=== PATIENT | male | born 1950 | race Caucasian/White ===

== ENCOUNTER 2018-11-02 18:26 | Inpatient (IN) | payer OTHER ==
[~2018-11-02] VITALS: Ht 185.4 cm; Wt 83.0 kg
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
--- NOTE | 2018-11-02 20:38 | RADIOLOGY IMAGING REPORT ---
FACILITY: [facility] [place] PATIENT NAME: Duncan Min : 1950 MR: [id number] V: [id number] EXAM DATE: ORDERING PHYSICIAN: TOREY HYMAN TECHNOLOGIST: Location: [facility] Patient: Duncan Min : 1950 Visit/Account:[id number] Date of Sevice: 11/02/2018 CT HIP LEFT W/O HISTORY: hip fracture CT scan of the left hip. Axial imaging through the left hip. Reconstructed sagittal and coronal scans were obtained as well. One of the following dose optimization techniques was utilized in the performance of this exam: Autom ated exposure control; adjustment of the mA and/or kV according to the patient's size; or use of an i terative reconstruction technique. Specific details can be referenced in the facility's radiology C T exam operational policy. FINDINGS: The study demonstrates an impacted transcervical femoral neck fracture. No significant cortical offse t or angulation noted. Acetabulum is intact with no acetabular fracture. Superior and inferior pubic rami well-maintained. Periarticular soft tissues unremarkable IMPRESSION: 1. Impacted transcervical left femoral neck fracture. Report Dictated By: Yfn Leo MD at 11/02/2018 8:26 PM Report E-Signed By: Yfn Leo MD at 11/02/2018 8:31 PM WSN:[id number]
[2018-11-02 21:57] LABS: PLATELET COUNT, AUTOMATED 265 K/uL (150-450)
--- NOTE | 2018-11-02 21:58 | EKG ---
FACILITY: [facility] PATIENT NAME: ADE WOOTEN : [id number] MR: [id number] V: [id number] EXAM DATE: ORDERING PHYSICIAN: TOREY HYMAN TECHNOLOGIST: JESSIE Cassidy Reason : PRE-OP Blood Pressure : / mmHG Vent. Rate : 070 BPM Atrial Rate : 070 BPM P-R Int : 154 ms QRS Dur : 104 ms QT Int : 388 ms P-R-T Axes : 052 -29 029 degrees QTc Int : 419 ms Normal sinus rhythm Normal ECG No previous ECGs available Confirmed by LINH ROSADO ([id number]) on 11/03/2018 12:25:27 AM Referred By: Confirmed By:LINH ROSADO
[2018-11-02 22:09] LABS: INR 0.99
--- NOTE | 2018-11-02 22:32 | RADIOLOGY IMAGING REPORT ---
FACILITY: [facility] PATIENT NAME: Duncan Min : 1950 MR: [id number] V: [id number] EXAM DATE: ORDERING PHYSICIAN: TOREY HYMAN TECHNOLOGIST: Location: [facility] [place] Patient: Duncan Min : 1950 Visit/Account:[id number] Date of Sevice: 11/02/2018 CHEST SINGLE AP Indication: Pre-op evaluation.. Comparison: None available Findings: Cardiomediastinal silhouette and pulmonary vessels within normal limits. There is no focal infiltrate or lobar consolidation. No pneumothorax or pleural effusion. No nodule. Upper abdomen is unremarkable. No acute bony abnormality. IMPRESSION: 1. No acute cardiopulmonary process. Report Dictated By: Jaden Ulloa at 11/02/2018 10:24 PM Report E-Signed By: Jaden Ulloa at 11/02/2018 10:25 PM WSN:[id number]
[2018-11-02 22:37] VITALS: BP 147/74
[2018-11-02] MEDS ORDERED: NS(*) 0.9% 1000 ML BAG 1,000 ML IV PRN (23:05)
[2018-11-02] MEDS ORDERED: ONDANSETRON 4 MG/2 ML VIAL IVP PRN (23:05)
[2018-11-02] MEDS ORDERED: MORPHINE 4 MG/ML SDV IVP PRN (23:05)
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
[2018-11-02] MEDS ORDERED: ACETAMINOPHEN(*)1000 MG/100 ML 100 ML IVPB PRN (23:35)
[2018-11-02] MEDS ORDERED: GLUC100026 PO (23:44)
[2018-11-03] VITALS (17 sets, daily range): BP systolic 130–152; BP diastolic 66–78; Ht 185.4 cm; Wt 83.0 kg
[2018-11-03] MEDS ORDERED: NORMOSOL R SOLN(*) 1000 ML BAG 1,000 ML IV PRN (06:10)
[2018-11-03] MEDS ORDERED: FAMOTIDINE(*) 20MG/50ML PREMIX 50 ML IVPB ONE (08:00)
[2018-11-03] MEDS ORDERED: DEXAMETHASONE SOD PHOS 10MG/ML ONE (08:30)
[2018-11-03] MEDS ORDERED: fentaNYL CITR 100 MCG/2 ML AMP ONE (08:30)
[2018-11-03] MEDS ORDERED: ONDANSETRON 4 MG/2 ML VIAL ONE (08:30)
[2018-11-03] MEDS ORDERED: PROPOFOL EMUL(*) 10MG/ML 20 ML 20 ML ONE (08:30)
[2018-11-03] MEDS ORDERED: LIDOCAINE 2% IV 100 MG/5ML SYR ONE (08:31)
[2018-11-03] MEDS ORDERED: KETAMINE HCL-NS 50 MG/5 ML SYR ONE (08:32)
[2018-11-03] MEDS ORDERED: EPINEPHrine HCL 1 MG/ML AMP ONE (08:33)
[2018-11-03] MEDS ORDERED: ROPIVACAINE 0.2% 20 ML VIAL ONE ×2 (08:33→12:04)
[2018-11-03] MEDS ORDERED: ROPIVACAINE 0.5% 20 ML VIAL ONE (08:33)
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
--- NOTE | 2018-11-03 10:00 | NUR ---
1000 PT TRANSFERRED VIA INPT BED TO OPS/PACU FOR PREOP. SBAR RECEIVED FROM [facility] RN. UPON ARRIVAL TO OPS/PACU PT CHANGED INTO HOSPITAL GOWN, ALL PERSONAL ITEMS PLACED IN BAG AND PLACED ON INPT BED. 1045 PT REQUESTED URINAL, VOIDED W/O DIFFICULTY. 1105 TO BEDSIDE. PT DENIES NEEDS AT THIS TIME.
[2018-11-03] MEDS ORDERED: MIDAZOLAM 2 MG/2 ML VIAL ONE (11:36)
[2018-11-03] MEDS ORDERED: ceFAZolin(*) 2GM/D5W 50ML 50 ML IVPB ONE (11:48)
[2018-11-03] MEDS ORDERED: NS(*) 0.9% 1000 ML BAG 1,000 ML IV PRN (13:55)
[2018-11-03] MEDS ORDERED: MORPHINE 2 MG/ML SYR IVP PRN (13:55)
[2018-11-03] MEDS ORDERED: ONDANSETRON 4 MG/2 ML VIAL IVP PRN (13:55)
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
--- NOTE | 2018-11-03 14:24 | RADIOLOGY IMAGING REPORT ---
FACILITY: [facility] PATIENT NAME: Duncan Min : 1950 MR: [id number] V: [id number] EXAM DATE: ORDERING PHYSICIAN: DANILO SERNA TECHNOLOGIST: Location: [facility] Patient: Duncan Min : 1950 Visit/Account:[id number] Date of Sevice: 11/03/2018 Intraoperative fluoroscopy. BODY PART: Hip. NUMBER OF IMAGES: 2. HISTORY: Hip pinning. Images were obtained during intraoperative fluoroscopy. FLUOROSCOPY TIME: 1 minute 29 seconds. IMPRESSION: Intraoperative fluoroscopy. Report Dictated By: Jason Trejo MD at 11/03/2018 2:14 PM Report E-Signed By: Jason Trejo MD at 11/03/2018 2:16 PM WSN:[id number]
--- NOTE | 2018-11-03 14:53 | Miscellaneous Provider Note ---
Miscellaneous Provider Note Note Hip Pinning by Dr. Reveles. No surgical issues or complications reported. He will be on Aspirin for VTE prophylaxis. Pt has no complaints at this time. Pain management by Ortho. PT to eval. JANIYA SHETH Nov 03, 2018 14:53
--- NOTE | 2018-11-03 16:20 | NUR ---
Physical Therapy Impression PT eval done and goals met with initial visit. No further visits planned. Pt tolerated gait trng with FWW to access hallway and completed up/down platform step x 1 rep with FWW and SBA. Pt then educated on ambulation with single crutch as well as with B) crutches. Following this, pt completed up/down step with single crutch and rail with good technique and only minimial verbal cues required. Finally, pt completed a third step with Up/down using B) crutches. This technique required increased cues and CGA to ensure safety. Pt encouraged to complete stairs with only single crutch and hand-held assist or rail in the home environment. Pt also encouraged to utilize FWW with nursing through the night and then attempt crutch ambulation once more alert tomorrow with nursing, prior to possible discharge home. Pt completed therapy visit with bed mobility trng, using leg scientific helper device to assist as needed for L) LE in/out of bed and to reposition for comfort while in bed. Pt has met all PT goals and from a mobility stand point is ready for discharge when medically appropriate. Physical Therapy Goals Goals met with initial visit; no further visits planned 1. Pt to be CGA/SBA for bed mobility and supine to/from sit transfers 2. Pt to be CGA/SBA for ambulation x 100' with least restrictive device 3. Pt to complete up/down step x 3 with variety of methods to determine which feels safest to pt. PT recommends use of single crutch and rail or single crutch and hand-held assist. 4. Pt to be CGA/SBA for sit to/from stand transfers with FWW and crutches. Patient's Goals
[2018-11-03] MEDS: APAP/HYDROCODONE 325/5 TAB PO PRN ×2 (19:22→23:33)
[2018-11-03] MEDS ORDERED: ASPIRIN 325 MG ENTERIC COATED PO SCH (21:00)
[2018-11-04 04:30] VITALS: BP 129/71
[2018-11-04] MEDS: APAP/HYDROCODONE 325/5 TAB PO PRN ×2 (05:40→11:38)
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
[2018-11-04] MEDS ORDERED: ASPIRIN 81 MG ENTERIC COATED PO SCH (09:00)
[2018-11-04 09:15] VITALS: BP 111/67
[2018-11-04] MEDS ORDERED: ASPI-757 PO (10:07)
[2018-11-04] MEDS ORDERED: LOR5/325 PO (12:09)
[2018-11-04] MEDS ORDERED: DOCU240C84 PO (12:10)
[2018-11-04 12:38] VITALS: BP 122/75
--- NOTE | 2018-11-06 09:38 | RADIOLOGY IMAGING REPORT ---
FACILITY: [facility] [place] PATIENT NAME: Dnucan Min : 1950 MR: [id number] V: [id number] EXAM DATE: ORDERING PHYSICIAN: TOREY HYMAN TECHNOLOGIST: Location: [facility] Patient: Duncan Min : 1950 Visit/Account:[id number] Date of Sevice: 11/02/2018 HIP LEFT Indication: Left hip pain. Comparison: Pelvis and left hip radiographs dated 11/02/2018. Findings: AP view of the pelvis. Frog-leg view of the left hip. Acute nondisplaced left femoral neck fracture. No significant change. No dislocation or radiopaque foreign body. Mild bilateral hip osteoarthritis. Mild degenerative changes in the included portion of the lumbar s pine. Impression: Nondisplaced left femoral neck fracture. No significant change. Report Dictated By: Rafal Gaona MD at 11/06/2018 9:28 AM Report E-Signed By: Rafal Gaona MD at 11/06/2018 9:30 AM [id number]
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
== END 2018-11-04 13:02 | disposition home or self-care (01) | DRG 482 ==
LOC: ER 19:19 → MED 21:46
PROVIDERS: ADMIT Orthopaedic Surgery; ATTEND Orthopaedic Surgery
PROC: 0QS734Z Reposition Left Upper Femur with Internal Fixation Device, Percutaneous Approach (ICD-10-PCS; principal; 2018-11-03 12:14)
DX: S72.032A Displaced midcervical fracture of left femur, initial encounter for closed fracture (principal); V86.56XA Driver of dirt bike or motor/cross bike injured in nontraffic accident, initial encounter; Y92.821 Forest as the place of occurrence of the external cause; Y99.8 Other external cause status; Z87.891 Personal history of nicotine dependence
CPT/HCPCS: 71045; 76000; 76942; 82040; 82247; 82310; 82374; 82435; 82565; 82947; 84075; 84132; 84155; 84295; 84450; 84460; 84520; 85025; 85610; 85730; 93005; 97161; 99284; J0131; J0171; J0690; J1100; J2001; J2250; J2270; J2405; J2704; J2795; J3010; J3490; J7030